=== PATIENT | male | born 1940 | race Caucasian/White ===

== ENCOUNTER 2017-04-05 21:37 | Observation (INO) ==
--- NOTE | 2017-04-05 22:40 | PROVIDER DOCUMENTATION ---
This chart was entered by Srinivasa Araya Scribe, acting as scribe for Romeo Fontanez MD. HPI-Syncope/Dizziness - General Chief Complaint: Dizziness Stated Complaint: dizziness/fall Time Seen by Provider: 04/05/17 22:02 Source: patient, family Allergies/Adverse Reactions: Patient Allergies Allergy/AdvReac Type Severity Reaction Status Date / Time adhesive Allergy Severe Blisters Verified 04/02/17 11:08 codeine Allergy Severe NAUSEA/VOMI Verified 04/02/17 11:08 TING nifedipine [From Procardia] Allergy Severe ITCHING Verified 04/02/17 11:08 latex Allergy Unknown Verified 04/05/17 21:49 clopidogrel bisulfate * AdvReac Severe ITCHING Verified 04/02/17 11:08 [From Plavix] Home Medications: Home Medication List Medication Instructions Recorded Confirmed Last Taken Type Alprazolam [Xanax] 0.5 mg PO BID 04/05/17 04/05/17 04/05/17 History Apixaban [Eliquis] 2.5 mg PO BID 04/05/17 04/05/17 04/05/17 History Atorvastatin Calcium [Lipitor] 20 mg PO QHS 04/05/17 04/05/17 04/04/17 History Duloxetine [Cymbalta] 90 mg PO DAILY 04/05/17 04/05/17 04/05/17 History Folic Acid/Multivit-Min/Lutein 1 tab PO DAILY 04/05/17 04/05/17 04/05/17 History [Centrum Silver Chewable Tablet] Gabapentin [Gabapentin] 600 mg PO DAILY 04/05/17 04/05/17 04/05/17 History Memantine HCl [Namenda Xr] 28 mg PO DAILY 04/05/17 04/05/17 04/05/17 History Montelukast [Singulair] 10 mg PO DAILY 04/05/17 04/05/17 04/05/17 History Oxycodone HCl/Acetaminophen 1 tab PO Q6H PRN 04/05/17 04/05/17 04/05/17 History [Oxycodone-Acetaminophen 5-325] Tamsulosin HCl [Tamsulosin HCl] 0.4 mg PO DAILY 04/05/17 04/05/17 04/05/17 History Ticagrelor [Brilinta] 90 mg PO BID 04/05/17 04/05/17 04/05/17 History Ubidecarenone [Co Q-10] 100 mg PO DAILY 04/05/17 04/05/17 04/05/17 History - History of Present Illness-Syncope/Dizzy Nature of Presenting Problem: Pt is a 76 yowm who presents to ER via EMS after having a syncopal episode at 2100 tonight. reports that pt has been talking out of his head all week, and has had frequent falls lately. Pt was seen at [facility] yesterday for same and pt was told that he was hypotensive and constipated, put on laxative, and sent home. This evening, pt was getiing up from his recliner to answer his door , but passed out when he stood up. also reports that pt has been sleeping intermittently all day today. Onset/Duration: reports: 1-3 hours ago Timing: reports: improving Position/Activity at time of episode: reports: standing Context: reports: collapsed Loss of Consciousness: no loss of consciousness (Pt denied loc, but reports pt has been confused all week) Location of injury. (If syncope resulted in an injury.): reports: head (No loc, per pt) Current Symptoms: denies: sweaty, chest pain, breathing difficulty, short of breath, nausea, vomiting, weakness, dizzy, weak pulse, headache, blurred vision , lightheaded Similar symptoms previously: reports: workup for same problem Recently Seen Here or By Another Healthcare Provider: No Review of Systems - Adult - REVIEW OF SYSTEMS - ADULT Constitutional: denies: chills, fever, fatique, night sweats, weight gain, weight loss Eyes: reports: no symptoms reported Ears, Nose, Mouth & Throat: reports: no symptoms reported Cardiovascular: reports: syncope. denies: chest pain, edema, heart murmur, irregular heart rate, orthopnea, palpitations, poor circulation, PND Respiratory: denies: chronic cough, cough, dyspnea on exertion, excessive sputum production, hemoptysis, pleurisy, shortness of breath, wheezing Gastrointestinal: reports: no symptoms reported Genitourinary: reports: no symptoms reported Musculoskeletal: reports: no symptoms reported Integumentary: reports: no symptoms reported Neurological: reports: syncope, other ("talking out of head"). denies: ataxia, dizziness/vertigo, headache/migraines, loss of balance, numbness, paresthesia, seizure, slurred speech, tremors Psychiatric: reports: no symptoms reported Endocrine: reports: no symptoms reported Hematologic/Lymphatic: reports: no symptoms reported Allergic/Immunologic: reports: no symptoms reported All Other Systems: Reviewed and Negative Past History - Adult - PAST MEDICAL HISTORY-ADULT Review of Records: reports: Nursing Assessment Review, Medications Reviewed Cardiovascular: reports: A-Fib, CAD, hyperlipidemia, other (hypotension) Neurological: reports: CVA (4 yrs ago w/ right sided weakness), TIA Other Conditions: reports: other cancer - PRIOR SURGERIES/PROCEDURES Surgical/Procedure History: reports: appendectomy, CABG (x 2), cholecystectomy, cardiac stent (X20), hernia repair - IMMUNIZATION STATUS Childhood Immunizations: See Nurse Assessment Flu Vaccine: See Nurse Assessment - FAMILY HISTORY Family History: reviewed, not pertinent Physical Exam-General - PHYSICAL EXAM-ADULT Initial Vital Signs Reviewed: Yes - CONSTITUTIONAL General Appearance: appears well, alert, no apparent distress - EYES Eyes: PERRL/EOMI, pink conjunctivae - HEAD, EARS, NOSE, MOUTH & THROAT HENMT: moist mucous membranes, normal ENT inspection, TMs normal, pharynx normal , other (abrasion to inferior orbital and nose). negative: normocephalic/ atraumatic, pharyngeal erythema, tonsillar exudate, TM abnormal - NECK Neck: non-tender, full range of motion, supple, normal inspection. negative: C- spine tenderness, limited range of motion, lymphadenopathy - RESPIRATORY Respiratory: chest non-tender, lungs clear, normal breath sounds, no pleuratic chest pain, no respiratory distress, no accessory muscle use. negative: respiratory distress, decreased breath sounds, accessory muscle use, wheezing - CARDIOVASCULAR Cardiovascular: normal peripheral pulses, regular rate, rhythm. negative: bradycardia, tachycardia, irregularly irregular - GASTROINTESTINAL (ABDOMEN) Abdominal Exam: normal bowel sounds, non tender, soft, no organomegaly, no pulsatile mass. negative: guarding, rebound, tenderness - LYMPHATIC Lymphatic: no adenopathy - MUSCULOSKELETAL Back Exam: normal inspection, no CVA tenderness, no vertebral tenderness. negative: CVA tenderness, decreased range of motion, vertebral tenderness Extremity: normal range of motion, non-tender, normal gait, normal inspection, no pedal edema, no calf tenderness, normal capillary refill. negative: deformity, erythema, inflammation, swelling, tenderness - SKIN Integumentary: normal color, normal turgor, warm/dry, abrasion(s) (left, inferior periorbital; nose). 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 negative: facial droop, focal weakness, motor weakness, sensory deficit - PSYCHIATRIC Psych/Mental Status: normal mood/affect, normal thought content, normal thought process. negative: oriented x 3 (Oriented to person, place, president; Pt though year is 2015) Progress - PLAN OF CARE/RESULTS Progress/Plan/Lab Results: Vital Signs - 8 hr 04/05/17 21:45 04/05/17 23:22 04/05/17 23:34 Temperature 98.2 F Pulse Rate 72 69 Pulse Rate [Sitting] 74 Pulse Rate [Standing] 82 Pulse Rate [Supine] 82 Respiratory Rate 19 10 L Blood Pressure 170/69 170/69 Blood Pressure [Sitting] 93/58 Blood Pressure [Standing] 107/57 Blood Pressure [Supine] 132/66 O2 Sat by Pulse Oximetry 99 95 Laboratory Results - last 24 hr 04/05/17 23:58 WBC 9.33 RBC 3.80 L Hgb 11.6 L Hct 36.0 L MCV 94.7 MCH 30.5 MCHC 32.2 L RDW Std Deviation 14.0 Plt Count 223 MPV 10.5 H Immature Gran % (Auto) 0.0 Neut % (Auto) 79.5 H Lymph % (Auto) 9.4 L [place] % (Auto) 6.4 Eos % (Auto) 4.4 Baso % (Auto) 0.3 Immature Gran # (Auto) 0.00 Neut # (Auto) 7.41 H Lymph # (Auto) 0.88 L [place] # (Auto) 0.60 H Eos # (Auto) 0.41 Baso # (Auto) 0.03 Orders Category Date Time Status Cardiac Monitoring DIRECTED Care 04/05/17 22:02 Active Orthostatic Vital Signs NOW Care 04/05/17 22:02 Active Oxygen Therapy- ED Nursing DIRECTED Care 04/05/17 22:02 Active HEAD/C-SPINE W/O CONTRAST [CT] Stat Exams 04/05/17 21:57 Taken CBC WITH ELECTRONIC DIFF [HEME] Stat Lab 04/06/17 00:00 Completed CK PROFILE [SP CHEM] Stat Lab 04/06/17 00:00 Received COMPREHENSIVE METABOLIC PANEL [CHEM] Stat Lab 04/06/17 00:00 Received MAGNESIUM [CHEM] Stat Lab 04/06/17 00:00 Received PRO B-NATRIURETIC PEPTIDE Stat Lab 04/06/17 00:00 Received TROPONIN T Stat Lab 04/06/17 00:00 Received EKG [EKG] Stat Ther 04/05/17 22:02 Ordered Result Diagrams: 04/05/17 23:58 - EKG 1 Time of EKG reading by physician:: 21:51 EKG Read and Signed by:: Romeo Fontanez EKG Interpretation (*Must complete 3 of following elements*): Abnormal (ST & T wave abnormality, consider inferolateral ischemia; Prolonged QT) Rate: 69 Rhythm: Sinus rhythm with 1st degree AV block with occasional PVC - CT/MRI 1 CT Study: Cervical Spine (No acute fxs are seen - Dr. Crandall (Radiologist)), Head (No acute hemorrhage or definite acute infarct - Dr. Crandall (Radiologist)) Impression: See EMR Report CT Results: See report - CONSULTS/PCP/HOSPITALIST Notification #1 *Consult/PCP/Hospitalist*: Dr. Doll (Hospitalist) Time Discussed: 00:22 Consult Disposition: Admit Departure - Departure Time of Disposition Decision: 00:30 DIAGNOSIS: Syncope Qualifiers: Syncope type: unspecified Qualified Code(s): R55 - Syncope and collapse CAD (coronary artery disease) Qualifiers: Coronary Disease-Associated Artery/Lesion type: unspecified vessel or lesion type [place] vs. transplanted heart: unspecified whether [place] or transplanted heart Associated angina: without angina Qualified Code(s): I25.10 - Atherosclerotic heart disease of [place] coronary artery without angina pectoris Disposition: ADMITTED INPATIENT 09 Certified Medical Emergency: Emergent Condition: Stable Referrals and Follow-Ups: Rashad Hilario MD [Primary Care Provider] - - Critical Care Note This patient required my direct & personal management of CC.: No This chart was documented by the indicated scribe, (Srinivasa Araya Scribe) and accurately reflects the services I performed and decisions made by me, Romeo Fontanez MD, as attested by the provider's signature.
[2017-04-06 00:19] LABS: MANUAL DIFF NEEDED? NO
[2017-04-06 00:23] LABS: BASO% 0.3 % (0.0-0.8); EOS# 0.41 X1000 (0.0-0.7); EOS% 4.4 % (0.0-10.0); HEMOGLOBIN 11.6 g/dL (14.0-18.0); LYMPH# 0.88 X1000 (1.2-3.4); LYMPH% 9.4 % (20.5-51.1); MCH 30.5 PG (27-31); MCHC 32.2 g/dL (33-37); MCV 94.7 FL (81-99); MONO% 6.4 % (1.7-9.3); MPV 10.5 FL (7.4-10.4); NEUT% 79.5 % (42.2-75.2); PLT 223 X1000 (130-400)
[2017-04-06 00:39] LABS: ALBUMIN 4.1 g/dL (3.5-5.0); CALCIUM 9.2 mg/dL (8.8-10.2); MAGNESIUM 2.4 mg/dL (1.5-2.7); POTASSIUM 5.4 mmol/L (3.5-5.1); TOTAL BILIRUBIN 0.31 mg/dL (0.20-1.00); TOTAL PROTEIN 9.3 g/dL (6.3-8.3)
[2017-04-06] MEDS ORDERED: ZOFRAN IV PRN (03:14)
--- NOTE | 2017-04-06 03:38 | HISTORY AND PHYSICAL ---
PRIMARY CARE PHYSICIAN: Dr. Hilario. CHIEF COMPLAINT: Fall. HISTORY OF PRESENTING ILLNESS: This is a 76-year-old male with a history of complicated medical problems including coronary artery disease, hyperlipidemia, dementia, CVA, multiple coronary stents and bypass. Had presented to emergency department with a 1-day history of having a fall. He states that he was he was going to answer the doorbell when all of a sudden, he became weak and passed out. He was brought to the emergency department. He was orthostatic and due to his presenting symptoms, it was thought that we would place him for observation for further evaluation and management. At the time of my examination, he had denied any headaches, fevers, chills, chest pain, shortness of breath, hemoptysis, or weight changes. The patient states that he has been going to a soldering inspector in [place]. They recently had taken him off his blood pressure medicines due to hypotension. PAST MEDICAL HISTORY: Includes coronary artery disease, hyperlipidemia, BPH, dementia, GERD, CVA. PAST SURGICAL HISTORY: Coronary bypass x2, coronary stents, right carotid endarterectomy, cholecystectomy right rotator cuff surgery, bilateral knee replacement, right carpal tunnel surgery. ALLERGIES: Codeine, Plavix, latex. CURRENT MEDICATIONS: Listed in the MAR. SOCIAL HISTORY: He denies any history of smoking, alcohol, or illicit drug use. FAMILY HISTORY: Positive for coronary disease in father. REVIEW OF SYSTEMS: Twelve point review of systems is as listed in the HPI. Other systems negative. PHYSICAL EXAMINATION: GENERAL: Cooperative, friendly male. He is resting comfortably now. VITAL SIGNS: Temperature 98.2 degrees, pulse 72, respirations 18, blood pressure 170/69, he is saturating 99% on room air. HEENT: Atraumatic, normocephalic. Extraocular movements intact. PERRLA. NECK: No masses. CHEST: Clear to auscultation. CARDIOVASCULAR: Regular rate and rhythm. ABDOMEN: Soft. Positive bowel sounds. EXTREMITIES: Trace edema. NEUROLOGIC: He is awake, alert, oriented x2. : No bladder distention. SKIN: Warm. LABORATORIES AND STUDIES: Sodium 137, potassium 5.4, chloride 100, CO2 is 23, BUN is 34, creatinine is 2.4, glucose is 128. WBCs 9.33, hemoglobin 11.6, hematocrit 36, platelets are 233,000. Troponin is 0.01. ASSESSMENT: This is a 76-year-old male with a history of multiple medical problems including coronary artery disease, hyperlipidemia, benign prostatic hypertrophy, and cerebrovascular accident who had multiple stents coronary stents and who had presented to the emergency department after he had syncopal episodes. The patient will need hospitalization for cardiac evaluation. 1. Syncope. 2. Extensive coronary disease. 3. History of cerebrovascular accident. 4. Hyperlipidemia. PLAN: 1. We will admit the patient to the medical floor with telemetry. 2. Continue with orthostatic blood pressure and pulse. 3. We will consult cardiology for his syncope. 4. continue neuro checks. 5. We will restart his home medications. 6. We will put patient on DVT prophylaxis with SCDs. 7. We will continue to follow and reassess. cc: Yunior Doll MD MTDD
--- NOTE | 2017-04-06 08:24 | Diag Imaging Result Doc PS360 ---
EXAM: HEAD/C-SPINE W/O CONTRAST HISTORY: fall TECHNIQUE: COMPARISON: Head as compared to 11/30/2016 FINDINGS: Head: No parenchymal hemorrhage. No epidural or subdural hematoma. No subarachnoid hemorrhage. No skull fracture. There are prominent chronic microvascular ischemic changes. No mass identified on this noncontrasted exam. Small scattered old lacunar views with a small old left occipital infarct. No sinus opacification. Cervical spine: There is good alignment of the cervical spine. No precervical soft tissue swelling. No subluxation. There are small degenerative bone spurs. No fracture. IMPRESSION: 1.Head: No hemorrhage. No injury. There are chronic ischemic changes and small infarcts. 2.Cervical spine: No acute fracture 3.A preliminary report was given at 10:55 PM Electronically signed by Curtis Mao 04/06/2017 8:22 AM
[2017-04-06] MEDS ORDERED: FLOMAX PO SCH (09:00)
[2017-04-06] MEDS ORDERED: NEURONTIN PO SCH (09:00)
[2017-04-06] MEDS: NAMENDA XR PO SCH (09:18)
[2017-04-06] MEDS: CYMBALTA PO SCH (09:18)
[2017-04-06] MEDS: BRILINTA PO SCH ×2 (09:18→20:13)
[2017-04-06] MEDS: SINGULAIR PO SCH (09:18)
[2017-04-06] MEDS: CENTRUM SILVER PO SCH (09:18)
[2017-04-06] MEDS: COENZYME Q10 PO SCH (09:18)
[2017-04-06] MEDS: ELIQUIS PO SCH ×2 (09:18→20:13)
[2017-04-06] MEDS: XANAX PO SCH ×2 (12:58→20:13)
[2017-04-06] MEDS: NS 1,000 ML IV SCH (14:56)
--- NOTE | 2017-04-06 15:30 | PROGRESS NOTE ---
DATE: 04/06/2017 SUBJECTIVE: Today Mr. Mendoza refers to be doing fine. Mr. Mendoza was admitted yesterday because of multiple episodes of falls for the past couple of days which according to the is just getting too much. He has also been experiencing altered mentation which according to the is not normal for him. 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 For the past 3 days he has just been sitting up in the chair, having difficulty to walk around. He says he feels dizzy, especially when moves his head and he does not really feel when he is walking around. OBJECTIVE: Vital signs: Blood pressure is 139/62, pulse of 79, respirations 20 , temperature 98.1 degrees. General: Mr. Mendoza is a 76-year-old, male. He is in bed. Did not seems to be in any distress. HEENT: Mucosa is pink and moist. Anicteric. Acyanotic. Neck: Supple. Chest: Clear. Cardiovascular: Regular rate and rhythm. There is a 2/6 aortic stenosis murmur radiating to the neck. There is an a sternotomy scar consistent with previous surgery. Abdomen: Soft, nontender. Extremities: No pedal edema. LUNCH COUNTER MANAGER: Patient is alert, oriented, has episode of memory gaps. There is not any cerebellar dysfunction. However, patient has very wide-based short steps gait. Has to be the looking on the floor to kind of measure his next step. His Romberg is positive. Vibration sense is remarkably reduced from the tips of the toes all the way up to the knees. Reflexes are normal. IMAGING: A CT scan of the head and cervical spine which was done showed no hemorrhage, no injury. There are chronic ischemic changes and small infarcts. LABORATORY DATA: WBC is 9.33, hemoglobin is 11.6, platelet count of 223,000. MCV is 94.7. Chemistry is reviewed. Sodium is 137, potassium is 5.4, chloride is 100, bicarb is 23. The BUN is 34, creatinine is 2.4. Review of the EKG on admission showed a normal sinus rhythm with frequent PVCs. ASSESSMENT: Mr. Mendoza is a 76-year-old, male who presented with a history of multiple falls with some sensation deficit in the lower extremities. 1. Multiple falls. Etiology is apparently not clear. The patient does have significant sensation impairment to the lower extremity on vibration. Romberg is positive. I am suspecting possible sensory ataxia. We will, however, want to do an MRI to rule out any pontocerebellar angle disease or inner ear abnormality. We will also get Neurology to examine the patient since he might probably end up getting an EMG with nerve conduction studies. For now we will put the patient on meclizine for symptomatic relief, and will also cut down on his gabapentin because of his renal function. We are also going to check on his vitamin D to see if it is low. We will replace it since sometimes that can also impact immensely on the musculoskeletal health. 2. Normocytic anemia. We will do the workup especially looking at the B12 and folate since they can as well give this type of sensory symptoms. We will also do a TSH. 3. Chronic kidney disease, stage 4 noted. 4. History of hypertension. Patient is actually on medication. When he came in , he did numbers that where almost consistent with orthostatic hypotension. So I think it is reasonable to withhold his blood pressure medications for now and hydrate him, give him a gentle hydration and recheck his orthostatic vitals and go from there. 5. Hx of CAD with multiple stents. Noted. 6. Hx Tachyarrhythmias s/p cardiac ablation. Patient could as well be having cardiac syncope. Cardiology to evaluate PLAN: In general, Mr. Mendoza seems to be stable. He has this wide-based gait with some imbalance. Romberg is positive. We will get Neurology to see the patient. We will withhold on his blood pressure medications for now. I will reduce his gabapentin because of his renal issues. We are going to withhold the Flomax since that can immensely cause orthostatic hypotension. We will follow up with further recommendations from Cardiology and Neurology that have been consulted. Patient is also pending an MRI. Follow up with lab work mentioned above. cc: Fox Ballard MD MTDD
[2017-04-06] MEDS: ANTIVERT PO SCH (17:31)
--- NOTE | 2017-04-06 18:53 | CONSULTATION ---
DATE OF CONSULTATION: 04/06/2017 IMPRESSION: 1. Recurrent syncope without warning. Although he has had some tendency for orthostatic hypotension and lower blood pressure, his syncope occurred without warning and given his history of prior paroxysmal atrial fibrillation managed with pulmonary vein isolation, one must consider the possibility of sinus node dysfunction or conduction system disease. He has worn event recorders in the past but has never become symptomatic while wearing one. 2. Atherosclerotic coronary disease with 2 previous coronary bypass procedures and multiple coronary angioplasty/stent procedures last being performed about a month ago at [facility] in [place], [place]. 3. Atherosclerotic carotid disease with history of right carotid endarterectomy. 4. Hyperlipidemia. 5. Chronic kidney disease. 6. History of previous cerebrovascular accident. RECOMMENDATIONS: 1. Monitor patient on telemetry overnight. 2. If no arrhythmias and patient stable, it is reasonable to discharge him with 30-day event recorder. Patient should have prompt followup with his EP/arrhythmia comic writer Dr. Henry at [facility] in [place], [place] as soon as possible. 3. Patient warned not to drive and to take precautions to not place himself in precarious situation should he have a syncopal spell. HISTORY: This 76-year-old white male with past history of atherosclerotic coronary disease as outlined above, hyperlipidemia, mild dementia, previous cerebrovascular accident, paroxysmal atrial fibrillation and previous right carotid endarterectomy was admitted after another episode of syncope. He relates he had just gotten up and was walking across the room and passed out without any warning. There were no palpitations, no lightheadedness. He hit the left side of his face and suffered laceration just lateral to his left orbit. He also suffered a left hand injury. He relates that he has had probably 12 episode of syncope and all have occurred without any warning symptoms. He recently had reemergence of angina symptoms and had evaluation at [facility] by Dr. Mehran Norton. He indicates that he had angio/stenting and his angina symptoms abated. He has had some tendency for low blood pressure and his antianginal medications have been curtailed because of this. He has history of paroxysmal atrial fibrillation in the past and had pulmonary vein isolation procedure at [facility] by Dr. Henry. He is due for followup with Dr. Henry in the near future. He has not had any orthopnea or recurrence of angina. He has had no palpitations. PAST MEDICAL HISTORY: 1. Atherosclerotic coronary disease as outlined above. 2. Hyperlipidemia. 3. Mild dementia. 4. Previous cerebrovascular accident. 5. Previous right carotid endarterectomy. PAST SURGICAL HISTORY: Includes right carotid endarterectomy, coronary bypass surgery on 1 occasion, repeat coronary bypass grafting, cholecystectomy, right rotator cuff surgery, bilateral knee replacement, right carpal tunnel procedure. ALLERGIES: He is allergic or intolerant to codeine, Plavix and latex. CURRENT MEDICATIONS: As listed. It is noteworthy that he is on tamsulosin which he takes at night for prostate hypertrophy. He is also taking Eliquis and Brilinta the latter being added after his recent angioplasty/stent procedure. He is effectively on no antianginal. SOCIAL HISTORY: He does not smoke or drink. FAMILY HISTORY: Positive for coronary disease in his father with older age of clinical onset. REVIEW OF SYSTEMS: Pulmonary: Negative. Gastrointestinal: Negative. Constitutional: Negative. Remainder review of systems negative/noncontributory with 14 total systems reviewed. PHYSICAL EXAMINATION: General: This is a overweight elderly male in no distress on room air. Vital Signs: Blood pressure 139/62, heart rate 79 and regular with ECG monitor showing sinus rhythm, oxygen saturation 96% on room air. HEENT Exam: Remarkable for laceration lateral to left orbit with dressing in place. Mucous membranes moist. Neck: Supple without JV distention. Carotid bruits cannot be appreciated. Chest: Clear to auscultation. Cardiac Exam: Reveals a regular rate and rhythm without appreciable murmur or gallop. Abdomen: Soft, nontender. Bowel sounds are normal. Extremities: Without edema. Neurologic Exam: Reveals him to be alert, fully oriented. Speech is fluent. Moves all 4 extremities equally well. Skin: Warm and dry. Psychiatric: Reveals his mood to be appropriate. DATA: ECG demonstrates sinus rhythm with 1st degree AV block and occasional premature ventricular complex. Inferolateral ST and T-wave abnormality demonstrated, consider inferolateral ischemia. cc: Brendan Stevens MD
[2017-04-06] MEDS: LIPITOR PO SCH (20:13)
[2017-04-07 05:30] LABS: MANUAL DIFF NEEDED? NO
[2017-04-07 05:36] LABS: BASO% 0.4 % (0.0-0.8); EOS# 0.55 X1000 (0.0-0.7); EOS% 7.4 % (0.0-10.0); HEMATOCRIT 37.3 % (42.0-52.0); HEMOGLOBIN 11.9 g/dL (14.0-18.0); IMM GRAN# 0.02 X1000 (0.0-0.04); IMM GRAN% 0.3 % (0.0-0.5); LYMPH# 1.54 X1000 (1.2-3.4); LYMPH% 20.6 % (20.5-51.1); MCH 30.2 PG (27-31); MCHC 31.9 g/dL (33-37); MCV 94.7 FL (81-99); MONO# 0.79 X1000 (0.11-0.59); MONO% 10.6 % (1.7-9.3); MPV 10.3 FL (7.4-10.4); NEUT% 60.7 % (42.2-75.2); PLT 208 X1000 (130-400); RBC 3.94 XMIL (4.7-6.1)
[2017-04-07 05:50] LABS: CALCIUM 9.3 mg/dL (8.8-10.2); POTASSIUM 4.9 mmol/L (3.5-5.1)
[2017-04-07 05:51] LABS: IRON SATURATION 21 %; TIBC 228 ug/dL; TOTAL IRON 48 ug/dL (53-167); UNBOUND IRON 180 ug/dL (112-346)
[2017-04-07] MEDS: NS 1,000 ML IV SCH (06:12)
--- NOTE | 2017-04-07 07:48 | EKG Report ---
Test Performed on : 04/05/2017 9:51:14 PM Test Reason : Chest Pain Blood Pressure : / mmHG Vent. Rate : 069 BPM Atrial Rate : 069 BPM P-R Int : 210 ms QRS Dur : 110 ms QT Int : 438 ms P-R-T Axes : 064 029 169 degrees QTc Int : 469 ms Sinus rhythm. with 1st degree AV block. with occasional premature ventricular complexes. ST \T\ T wave abnormality, consider inferolateral ischemia Prolonged QT Abnormal ECG When compared with ECG of 02-APR-2017 11:15, premature ventricular complexes. are now present Unconfirmed Result
[2017-04-07] MEDS: ELIQUIS PO SCH ×2 (09:29→20:20)
[2017-04-07] MEDS: NEURONTIN PO SCH (09:29)
[2017-04-07] MEDS: NAMENDA XR PO SCH (09:29)
[2017-04-07] MEDS: XANAX PO SCH ×2 (09:29→20:20)
[2017-04-07] MEDS: CYMBALTA PO SCH (09:30)
[2017-04-07] MEDS: COENZYME Q10 PO SCH (09:30)
[2017-04-07] MEDS: ANTIVERT PO SCH ×3 (09:30→17:38)
[2017-04-07] MEDS: CENTRUM SILVER PO SCH (09:30)
[2017-04-07] MEDS: BRILINTA PO SCH ×2 (09:30→20:20)
[2017-04-07] MEDS: SINGULAIR PO SCH (09:30)
--- NOTE | 2017-04-07 10:36 | ECHO REPORT ---
ORDER DATE: 04/06/2017 MEASUREMENTS: Left ventricular end-diastolic diameter 5.0, septal thickness 1.6, left atrium 4.2, aortic root 4.1. SUMMARY: 1. Technically difficult study due to limited acoustic window quality. 2. Fibrocalcific changes of aortic valve demonstrated, with reduced aortic valve leaflet mobility. Peak instantaneous gradient across the aortic valve is 28 mmHg, with a mean gradient of 18 mmHg. Doppler of LV outflow tract was suboptimal, and aortic valve area cannot be calculated by Doppler. Moderate aortic stenosis is suggested. There is mild aortic regurgitation. Moderate mitral annular calcification is demonstrated, with mild mitral regurgitation. Tricuspid and pulmonic valves are without structural abnormality, with mild tricuspid regurgitation. The estimated systolic PA pressure by Doppler is 30 to 35 mmHg. The aortic root is mildly enlarged. 3. Normal left ventricular chamber size with [id number] concentric left ventricular hypertrophy is demonstrated. Estimated left ventricular ejection fraction is approximately 45%. Regional wall motion analysis is challenging given limitations of study. No obvious wall motion abnormality can be appreciated. Doppler suggests grade 1 left ventricular diastolic dysfunction. Left atrium is mildly enlarged. Right atrium and right ventricle are normal in size with normal right ventricular systolic function. 4. No pericardial effusion. 5. The appearance of inferior vena cava suggests normal central venous pressure. CONCLUSIONS: 1. Technically difficult study. 2. Moderate calcific aortic stenosis. 3. Moderate mitral annular calcification with mild mitral regurgitation. 4. Mild tricuspid regurgitation. 5. [id number] concentric left ventricular hypertrophy with estimated left ventricular ejection fraction of approximately 45%. 6. Grade 1 left ventricular diastolic dysfunction. 7. Mild left atrial enlargement. 8. Mild aortic root enlargement. cc: MD Yunior Gar MD
--- NOTE | 2017-04-07 14:11 | PROGRESS NOTE ---
DATE: 04/07/2017 SUBJECTIVE: The patient is resting comfortably in bed. He has no complaints at this time. No acute events noted overnight. OBJECTIVE: Vital Signs: Temperature 97.9 degrees, blood pressure 147/72, heart rate 69, respirations 18, O2 saturation is 98% on room air. General: This is an elderly male, lying in bed, in no acute distress. HEENT: Head is normocephalic. Atraumatic. Heart: S1, S2. Normal. Regular rate and rhythm. Lungs: Clear to auscultation bilaterally. No wheezes, no rales. No rhonchi. Abdomen: Positive bowel sounds. Soft, nontender, nondistended. Extremities: No edema. No cyanosis. Neurologic: The patient is alert and oriented x3. LABORATORY DATA: White blood cell count 7.4, hemoglobin 11, hematocrit 37, platelets 208,000. Sodium 139, potassium 4.9, chloride 103, CO2 23, BUN 31, creatinine 2.1. Glucose 111. ASSESSMENT AND PLAN: 1. Syncope. We will check orthostatics on the patient. An echo was done and the report was reviewed. Cardiology, as well as Neurology, have been consulted. 2. Acute kidney injury on chronic kidney disease. Improved. Continue to monitor closely and avoid nephrotoxic agents. 3. Coronary artery disease with multiple stents. Aware. Continue on Brilinta. 4. History of tachyarrhythmia status post cardiac ablation. Aware. cc: Michelle Bernard MD
--- NOTE | 2017-04-07 14:23 | PROGRESS NOTE ---
DATE: 04/07/2017 SUBJECTIVE: Mr. Mendoza continues without chest discomfort or dyspnea. OBJECTIVE: Vital Signs: Blood pressure 139/62, heart rate 79 and regular. There is no significant jugular distention. Chest: Slear to auscultation. Cardiovascular: Regular rate and rhythm with a grade 2/6 systolic murmur at the right upper sternal border. No gallop could be appreciated. ECHOCARDIOGRAPHY: Indicates moderate calcific aortic stenosis, mild mitral regurgitation. Mild- to-moderate concentric left hypertrophy with estimated left ejection fraction 45%. IMPRESSION: 1. Recurrent syncope. He has demonstrated some tendency for low blood pressure/orthostatic hypotension. However the pattern of syncope without warning on multiple occasions raises concern regarding possible sinus pause of bradycardia as cause. 2. Atherosclerotic coronary disease with history of previous coronary bypass on 2 occasions and multiple coronary stent procedures. 3. Hypertension. 4. Chronic kidney disease. 5. Moderate aortic stenosis. 6. History of atrial fibrillation and previous ablation. RECOMMENDATIONS: At this point, I would advocate patient having for prompt followup with his electrophysiology/arrhythmia campaign marketing manager Dr. Henry at [facility] in [place], [place]. Discussed with the family and the patient's is going to try and make an appointment as soon as possible. cc: Brendan Stevens MD
[2017-04-07] MEDS: LIPITOR PO SCH (20:20)
[2017-04-07] MEDS: COREG PO SCH (21:38)
[2017-04-08 06:30] LABS: CALCIUM 8.9 mg/dL (8.8-10.2); POTASSIUM 4.5 mmol/L (3.5-5.1)
--- NOTE | 2017-04-08 08:30 | PROGRESS NOTE ---
DATE: 04/08/2017 SUBJECTIVE: Patient continues asymptomatic from a cardiovascular standpoint. He denies dyspnea or chest pain on room air. OBJECTIVE: Vital Signs: Blood pressure supine 128/64, with heart rate 84, blood pressure standing 118/60, with a heart rate of 82. ECG monitor shows sinus rhythm. There is an episode of nonsustained VT. Neck: There is no significant jugular venous distention. Chest: Clear to auscultation. Cardiac Examination: Reveals a regular rate and rhythm without appreciable murmur or gallop. Extremities: There is no evidence of peripheral edema. IMPRESSION: 1. Recurrent syncope. Although he has shown some tendency for orthostatic hypotension, the recurrent nature of his syncope and abrupt nature suggests the potential for bradyarrhythmias and underlying conduction system disease. He has also demonstrated nonsustained ventricular tachycardia. 2. Atherosclerotic coronary disease with history of 2 previous coronary bypass procedures and multiple coronary stent procedures. He continues without angina. 3. Hypertension. 4. Chronic kidney disease. 5. Moderate aortic stenosis. 6. History of atrial fibrillation and previous ablation. RECOMMENDATIONS: At this point, I advocate having the patient arrange prompt followup with his electrophysiology/arrhythmia certified master safecracker, Dr. Henry at [facility] in [place], [place]. This has been discussed with the family and the is going to try and make arrangements as soon as possible. cc: Brendan Stevens MD
[2017-04-08] MEDS: ELIQUIS PO SCH (09:57)
[2017-04-08] MEDS: ANTIVERT PO SCH (09:57)
[2017-04-08] MEDS: COREG PO SCH (09:57)
[2017-04-08] MEDS: XANAX PO SCH (09:57)
[2017-04-08] MEDS: NEURONTIN PO SCH (09:57)
[2017-04-08] MEDS: COENZYME Q10 PO SCH (09:57)
[2017-04-08] MEDS: CENTRUM SILVER PO SCH (09:57)
[2017-04-08] MEDS: SINGULAIR PO SCH (09:57)
[2017-04-08] MEDS: NAMENDA XR PO SCH (09:57)
[2017-04-08] MEDS: CYMBALTA PO SCH (09:57)
[2017-04-08] MEDS: BRILINTA PO SCH (09:57)
[2017-04-08 11:45] VITALS: BP 124/71
--- NOTE | 2017-04-08 12:36 | Diag Imaging Result Doc PS360 ---
EXAM: MRI BRAIN W W/O CONTRAST INDICATION: unsteady gait COMPARISON: 12/02/2016 FINDINGS: There is no evidence of acute infarct. There are several stable chronic lacunar infarcts involving the periventricular and subcortical white matter. There is a chronic lacunar infarct involving the left cerebellar hemisphere. There is focal encephalomalacia involving the left occipital lobe. There is extensive T2/FLAIR hyperintensity in the periventricular and subcortical white matter suggesting advanced microangiopathy, stable. There is no discrete intracranial mass, mass effect, or intracranial hemorrhage. There is suggestion of a subtle outpouching at the anterior communicating artery near the take off of the A2 segment of the left anterior cerebral artery. This may represent a tiny aneurysm measuring up to 2.8 mm in the greatest dimension. If warranted clinically, a CTA head may be helpful. Otherwise, there is no evidence of abnormal intracranial enhancement. The surrounding soft tissues and bony structures are essentially unremarkable. IMPRESSION: 1.Multiple chronic lacunar infarcts throughout both cerebral hemispheres and in the left cerebellar hemisphere as well as focal encephalomalacia involving the left occipital lobe. These are stable. 2.Suggestion of extensive white matter microangiopathy, stable. 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 4.No definite acute intracranial pathology. Electronically signed by Harris Hussein 04/08/2017 12:33 PM
--- NOTE | 2017-04-20 19:20 | DISCHARGE SUMMARY ---
ADMISSION DATE: 04/07/2017 DISCHARGE DATE: 04/08/2017 FINAL DISCHARGE DIAGNOSES: 1. Recurrent cardiogenic syncope 2. Acute kidney injury on chronic kidney disease. 3. Coronary artery disease with multiple stents. 4. History of tachyarrhythmia status post cardiac ablation. CONSULTATIONS REQUESTED DURING THIS HOSPITAL STAY: Cardiology consultation with Brendan Stevens MD . HOSPITAL COURSE: Mr. Mendoza is a 76-year-old male with a history of extensive cardiac disease and recurrent syncope who presented to the ER after having a syncopal episode. The patient is normally followed by Dr. Henry at [facility] in [place], [place]. Cardiology was consulted here and after reviewing the patient's telemetry strips and echocardiogram, it was determined that the patient's recurrent syncope was most likely secondary to a cardiac etiology. It was recommended by the classroom instructor here in [place] that the patient follow up with his classroom instructor in [place], [place]. This was discussed with the patient and his family who agreed with the plan of care. The patient was offered on an ambulance ride to [place]; however, he and his family refused and stated that they wanted to drive to [place] on their own for the appointment. The patient was cleared for discharge on 04/08/2017. DISCHARGE MEDICATIONS: 1. Coreg 3.125 mg p.o. twice a day. 2. Cymbalta 90 mg p.o. daily. 3. Gabapentin 600 mg p.o. daily. 4. Singulair 10 mg p.o. daily. 5. Namenda 28 mg p.o. daily. 6. Lipitor 20 mg p.o. at bedtime. 7. Eliquis 2.5 mg p.o. twice a day. 8. Xanax 0.5 mg p.o. twice a day. 9. Multivitamin 1 tablet oral daily. 10. Brilinta 90 mg p.o. twice a day. 11. Percocet 5/325, 1 tab oral every 6 hours p.r.n. for pain. 12. Flomax 0.4 mg p.o. daily. DISCHARGE DIET: Cardiac diet. ACTIVITY: As tolerated. FOLLOWUP INSTRUCTIONS: The patient is being discharged today to drive straight to [facility] in [place], [place] to be seen by his classroom instructor, Dr. Henry. cc: Michelle Brenard MD MTDD
== END 2017-04-08 11:56 | disposition home or self-care (01) ==
LOC: 4N 21:37 → ED 21:37 → SUATTDRO 04-06 01:19
PROVIDERS: ATTEND Internal Medicine

== ENCOUNTER 2017-05-04 12:38 | Observation (INO) ==
[2017-05-04] MEDS ORDERED: ASPIRIN PO STA (14:14)
--- NOTE | 2017-05-04 14:51 | Diag Imaging Result Doc PS360 ---
HEAD W/O CONTRAST - 05/04/2017 INDICATION: ams TECHNIQUE: A CT dose reduction protocol was used. COMPARISON: 04/05/2017 FINDINGS: Stable moderate to advanced periventricular white matter chronic microvascular disease. Stable old lacunar infarcts. Stable small cortical infarcts at the left frontal and occipital lobes. No intracranial mass or hemorrhage. The skull is intact. The sinuses, mastoids, and middle ears are clear. IMPRESSION: No change from prior. Electronically signed by Victor M Sweet 05/04/2017 2:48 PM
[2017-05-04 14:56] LABS: MANUAL DIFF NEEDED? NO
[2017-05-04 15:02] LABS: BASO% 0.3 % (0.0-0.8); EOS# 0.12 X1000 (0.0-0.7); EOS% 1.8 % (0.0-10.0); HEMATOCRIT 32.3 % (42.0-52.0); HEMOGLOBIN 10.5 g/dL (14.0-18.0); IMM GRAN# 0.02 X1000 (0.0-0.04); IMM GRAN% 0.3 % (0.0-0.5); LYMPH# 1.11 X1000 (1.2-3.4); LYMPH% 16.7 % (20.5-51.1); MCHC 32.5 g/dL (33-37); MCV 95.3 FL (81-99); MONO# 0.63 X1000 (0.11-0.59); MONO% 9.5 % (1.7-9.3); MPV 10.5 FL (7.4-10.4); NEUT% 71.4 % (42.2-75.2); PLT 214 X1000 (130-400); RBC 3.39 XMIL (4.7-6.1)
[2017-05-04 15:09] LABS: INR 1.11; PROTIME 11.7 Seconds (9.2-11.7); PTT 29.1 Seconds (22.0-36.0)
[2017-05-04 15:46] LABS: ALBUMIN 4.2 g/dL (3.5-5.0); CALCIUM 9.3 mg/dL (8.8-10.2); MAGNESIUM 2.2 mg/dL (1.5-2.7); POTASSIUM 4.9 mmol/L (3.5-5.1); TOTAL BILIRUBIN 0.44 mg/dL (0.20-1.00); TOTAL PROTEIN 9.2 g/dL (6.3-8.3)
[2017-05-04] MEDS ORDERED: LASIX IV ONE (16:39)
--- NOTE | 2017-05-04 16:53 | Diag Imaging Result Doc PS360 ---
CHEST-1 VIEW - 05/04/2017 INDICATION: sob TECHNIQUE: COMPARISON: 04/02/2017 FINDINGS: There is a new left subclavian dual chamber pacemaker in good position. There are other, stable surgical changes to the heart. Heart size and pulmonary vascularity is normal. No focal infiltrates, pneumothorax, or pleural effusion. IMPRESSION: No acute disease or complication. Electronically signed by Victor M Sweet 05/04/2017 4:51 PM
--- NOTE | 2017-05-04 17:12 | PROVIDER DOCUMENTATION ---
This chart was entered by Marleni White Scribe, acting as scribe for Rashaun Martin MD. HPI-General Adult - General Chief Complaint: Altered Mental Status Stated Complaint: AMS Time Seen by Provider: 05/04/17 12:58 Source: patient, family Allergies/Adverse Reactions: Patient Allergies Allergy/AdvReac Type Severity Reaction Status Date / Time adhesive Allergy Severe Blisters Verified 04/02/17 11:08 codeine Allergy Severe NAUSEA/VOMI Verified 04/02/17 11:08 TING nifedipine [From Procardia] Allergy Severe ITCHING Verified 04/02/17 11:08 latex Allergy Unknown Verified 04/05/17 21:49 clopidogrel bisulfate * AdvReac Severe ITCHING Verified 04/02/17 11:08 [From Plavix] Home Medications: Home Medication List Medication Instructions Recorded Confirmed Last Taken Type Alprazolam [Xanax] 0.5 mg PO BID 04/05/17 05/04/17 05/03/17 History Apixaban [Eliquis] 2.5 mg PO BID 04/05/17 05/04/17 05/03/17 History Atorvastatin Calcium [Lipitor] 20 mg PO QHS 04/05/17 05/04/17 05/03/17 History Duloxetine [Cymbalta] 90 mg PO DAILY 04/05/17 05/04/17 05/03/17 History Folic Acid/Multivit-Min/Lutein 1 tab PO DAILY 04/05/17 05/04/17 05/03/17 History [Centrum Silver Chewable Tablet] Gabapentin 600 mg PO DAILY 04/05/17 05/04/17 05/03/17 History Memantine HCl [Namenda Xr] 28 mg PO DAILY 04/05/17 05/04/17 05/03/17 History Montelukast [Singulair] 10 mg PO DAILY 04/05/17 05/04/17 05/03/17 History Oxycodone HCl/Acetaminophen 1 tab PO Q6H PRN 04/05/17 05/04/17 05/03/17 History [Oxycodone-Acetaminophen 5-325] Tamsulosin HCl 0.4 mg PO DAILY 04/05/17 05/04/17 05/03/17 History Ticagrelor [Brilinta] 90 mg PO BID 0505/04/17 05/03/17 History Ubidecarenone [Co Q-10] 100 mg PO DAILY 04/05/17 05/04/17 05/03/17 History Carvedilol [Coreg] 3.125 mg PO BID #60 tablet 04/08/17 05/04/17 05/03/17 Rx - History of Present Illness -Gen Adult Nature of Presenting Problems: 76 yo M presents to the ER with complaint of falling x3 times last night, increased confusion, and weakness. Pt had a pacemaker and defibrilator placed x2 weeks ago, was in [facility] for rehab. Family reports pt being more confused and "not being at baseline". States he will go 12 hours of not urinating then have incontinence. States he fell x3 times last night. Onset/Duration: reports: last night Associated Symptoms: reports: dizziness, genitourinary problems, weakness, trouble walking. denies: diarrhea, fatigue, fever/chills, nausea, shortness of breath, vomiting Review of Systems - Adult - REVIEW OF SYSTEMS - ADULT Constitutional: denies: chills, fever Eyes: reports: no symptoms reported Ears, Nose, Mouth & Throat: reports: no symptoms reported Cardiovascular: denies: chest pain, palpitations Respiratory: denies: cough, shortness of breath Gastrointestinal: denies: diarrhea, nausea, vomiting Genitourinary: reports: incontinence, urinary retention Musculoskeletal: denies: joint pain, joint swelling Integumentary: reports: no symptoms reported Neurological: reports: dizziness/vertigo. denies: headache/migraines Psychiatric: reports: no symptoms reported Endocrine: reports: no symptoms reported Hematologic/Lymphatic: reports: no symptoms reported Allergic/Immunologic: reports: no symptoms reported All Other Systems: Reviewed and Negative Past History - Adult - PAST MEDICAL HISTORY-ADULT Review of Records: reports: Nursing Assessment Review, Medications Reviewed Cardiovascular: reports: A-Fib, CAD, hyperlipidemia, other (hypotension) Neurological: reports: CVA (4 yrs ago w/ right sided weakness), TIA Other Conditions: reports: other cancer - PRIOR SURGERIES/PROCEDURES Surgical/Procedure History: reports: appendectomy, CABG (x 2), cholecystectomy, cardiac stent (X20), hernia repair - IMMUNIZATION STATUS Childhood Immunizations: See Nurse Assessment Flu Vaccine: See Nurse Assessment Physical Exam-General - PHYSICAL EXAM-ADULT Initial Vital Signs Reviewed: Yes - CONSTITUTIONAL General Appearance: alert, no apparent distress - EYES Eyes: PERRL/EOMI, pink conjunctivae - HEAD, EARS, NOSE, MOUTH & THROAT HENMT: normocephalic/atraumatic, normal ENT inspection, TMs normal, pharynx normal - NECK Neck: supple, normal inspection - RESPIRATORY Respiratory: no respiratory distress, no accessory muscle use - CARDIOVASCULAR Cardiovascular: normal peripheral pulses, regular rate, rhythm - GASTROINTESTINAL (ABDOMEN) Abdominal Exam: normal bowel sounds, non tender, soft - MUSCULOSKELETAL Back Exam: no CVA tenderness, no vertebral tenderness Extremity: normal gait, normal inspection - SKIN Integumentary: normal color, warm/dry, ecchymosis (R ribs), other (skin tear to L elbow) - NEUROLOGIC Neurologic: grossly normal, no motor/sensory deficits - PSYCHIATRIC Psych/Mental Status: normal mood/affect, normal thought content, normal thought process, oriented x 3 Progress - PLAN OF CARE/RESULTS Progress/Plan/Lab Results: Vital Signs - 8 hr 05/04/17 12:39 Temperature 98.3 F Pulse Rate 69 Respiratory Rate 20 Blood Pressure 136/76 O2 Sat by Pulse Oximetry 99 Result Diagrams: 05/04/17 14:41 05/04/17 14:41 - EKG 1 Time of EKG reading by physician:: 15:04 EKG Read and Signed by:: Rashaun Martin EKG Interpretation (*Must complete 3 of following elements*): Abnormal Rate: 61 Rhythm: sinus rhythm with 1st degree AV block [place]: normal QRS: normal LA Interval: normal ST Wave: non-specific ST changes (ST&T wave abnormality, consider inferolateral ischemia) - CT/MRI 1 CT Study: Head Impression: Normal (no change from prior, per radiologist) Comparison with other Films: no changes Departure - Departure Date of Disposition Decision: 05/04/17 Time of Disposition Decision: 17:11 DIAGNOSIS: Dyspnea, Congestive heart failure, Confusion, UTI symptoms Disposition: ADMITTED INPATIENT 09 Certified Medical Emergency: Emergent Condition: Stable Referrals and Follow-Ups: Rashad Hilario MD [Primary Care Provider] - - Critical Care Note This patient required my direct & personal management of CC.: No Attestation - Physician/ KYLAH Attestation The physician spent face to face time with patient:: Yes Advanced Practice Provider documentation review:: The physician spent face to face time with this patient and agrees with all MLP documentation, treatment, and medical decision making by the MLP. See provider notes for further information. This chart was documented by the indicated scribe, (Marleni White Scribe) and accurately reflects the services I performed and decisions made by Mario campbell Christophe I, MD, as attested by the provider's signature.
[2017-05-04 18:41] LABS: URINE CULTURE NEEDED? NO; URINE MICRO REVIEW NEEDED? NO; URINE SOURCE CATH
[2017-05-04 18:45] LABS: BILIRUBIN URINE NEGATIVE (NEGATIVE); BLOOD URINE NEGATIVE (NEGATIVE); COLOR YELLOW; GLUCOSE URINE NEGATIVE (NEGATIVE); LEUKOCYTES URINE NEGATIVE (NEGATIVE); NITRITE URINE NEGATIVE (NEGATIVE); PROTEIN URINE NEGATIVE (NEGATIVE); TURBIDITY URINE CLEAR (CLEAR); UROBILINOGEN URINE NORMAL (NORMAL)
[2017-05-04 18:46] LABS: UR EPITHELIAL CELLS <10 /HPF (<10); URINE BACTERIA NEGATIVE /HPF; URINE RBC <10 /HPF (<10); URINE WBC <10 /HPF (<10)
[2017-05-04] MEDS ORDERED: NS 1,000 ML IV SCH (18:53)
[2017-05-04] MEDS ORDERED: TYLENOL PO PRN (18:53)
[2017-05-04] MEDS ORDERED: ZOFRAN IV PRN (18:53)
[2017-05-04] MEDS: LIPITOR PO SCH (22:23)
[2017-05-04] MEDS: PERCOCET-5 PO PRN (22:23)
[2017-05-04] MEDS: XANAX PO SCH (22:24)
[2017-05-04] MEDS: BRILINTA PO SCH (22:24)
[2017-05-04] MEDS: ELIQUIS PO SCH (22:24)
[2017-05-04] MEDS: COREG PO SCH (22:24)
[2017-05-05] MEDS: PERCOCET-5 PO PRN ×2 (03:17→21:32)
--- NOTE | 2017-05-05 05:08 | HISTORY AND PHYSICAL ---
CHIEF COMPLAINT: Chest pain. HISTORY OF PRESENT ILLNESS: This is a 76-year-old, white male with a history significant for CAD history. He has had 20 plus stents. He is status post CABG x2. He presents with worsening confusion for the last 48 hours. He has also been aneuric for 12-24 hours. His family states he has been more confused. He has not been having more frequent falls. He injured both elbows. He was recently admitted in March and ended up getting a pacemaker placed by his compilation clerk. I thought it was in [place]. Then he went to rehab for a couple of weeks. He has been out of rehab for about 4 days. The last 2 days, he has been very confused. His family reports this is a big change from baseline from him, although he does carry a diagnosis of dementia and is on Namenda. Again, has not really been able to urinate. Apparently yesterday, he did have an episode in the middle of the night where he tried to urinate and he just was incontinent. Workup in the ER revealed an elevated BNP. It has been elevated before but it was about 1800 and his creatinine is at 2.8. Usually, his creatinine is in the 2 range, was as low as 1.9. There was concern over heart failure but his chest x-ray was clear. Head CT was clear. I am admitting him for altered mental status, urinary retention, acute kidney injury, possible UTI. PAST MEDICAL HISTORY: 1. Again, CAD status post CABG x2 and multiple PCIs including reportedly 20 plus stents. 2. Carotid stenosis. 3. Dyslipidemia. 4. BPH. 5. Dementia. 6. GERD. 7. History of CVA with right-sided weakness. PAST SURGICAL HISTORY: 1. CABG x2, PCI. 2. Right carotid endarterectomy. 3. Cholecystectomy. 4. Right rotator cuff surgery. 5. Bilateral knee replacement. 6. Right carpal tunnel. ALLERGIES: Codeine, Plavix, and latex. SOCIAL HISTORY: No tobacco or ethanol. He is a retired [employer]. FAMILY HISTORY: CAD in father. REVIEW OF SYSTEMS: All systems reviewed, otherwise negative. PHYSICAL EXAMINATION: VITAL SIGNS: Blood pressure was 171/78, heart rate of 76, respiratory rate of 16, temperature 98.3 degrees, 98% on room air. GENERALLY: Well-developed male in no acute distress. HEAD: Normocephalic, atraumatic. EYES: Pupils equal, round, reactive to light. Extraocular movements were intact. EARS/NOSE/THROAT: He had moist mucous membranes. NECK: Supple. CARDIOVASCULAR: Regular rate and rhythm. Soft S1-S2. PULMONARY: Clear anteriorly. GI: Soft, nontender, nondistended. Bowel sounds were positive. PULMONARY: Bilateral breath sounds clear to auscultation. EXTREMITIES: No clubbing or cyanosis. LYMPHATICS: No peripheral edema. NEUROLOGICAL: Examination was nonfocal. No pronator drift. No facial asymmetry. The patient is edentulous. MUSCULOSKELETAL: Was 5/5 in all 4 extremities. LABORATORY DATA: Hemoglobin and hematocrit 10 and 32, which is close to baseline. No white count. BUN and creatinine of 37 and 2.8. His last one was 44 and 2.6 nine days ago. When he was discharged on the , it was 1.9. EKG intermittently paced. Urine has been unobtainable. Coagulations were negative. Head CT was negative. Chest x-ray showed pacer but no acute airspace disease. He was given 80 of Lasix which he has not made any urine since that time. PROBLEM LIST: This is a 76-year-old, white male with coronary artery disease, dementia, diastolic heart failure who presents with altered mentation and urinary retention. 1. Encephalopathy, likely metabolic, multifactorial. I am suspicious of urinary tract infection and urinary retention. We will manage those issues and follow closely, neurologic checks. 2. Acute kidney injury with urinary retention. I think he needs Espinoza catheter placement. Renal ultrasound, urine electrolytes. I am going to hold any nephrotoxic drugs at least the next 24 hours. He is really not on anything that would be nephrotoxic. I am going to hold his Flomax because of his persistent orthostasis. Apparently, he is due to be started on droxidopa. It is a medication for specific orthostasis. 3. Coronary artery disease. We will get serial cardiac enzymes. Monitor on telemetry. I will interrogate his pacer just to make sure that there are no major issues. He is already on Eliquis. 4. Disposition pending the clinical improvement. cc: MD Rashad Ace MD
--- NOTE | 2017-05-05 07:58 | Diag Imaging Result Doc PS360 ---
EXAM: US RENAL 2 (RETROPER) COMPLETE HISTORY: dajuan/arf TECHNIQUE: Renal ultrasound COMMENT: The right kidney is 10.7 x 5.8 x 5.5 cm the left is 9.6 x 4.7 x 4.9 cm. The cortices appear to be thinned. There is hyperechoic. There are three cysts seen in the right kidney with the larger being in the upper midportion of the kidney measuring 2.8 cm in greatest dimension. There is some particular thinning of the cortex in the lower pole. There are no previous ultrasound studies available for comparison, however there were similar findings on the CT examination of 12/31/2016. IMPRESSION: Medical renal disease. No evidence of obstructive uropathy. Electronically signed by Errol Caro 05/05/2017 7:56 AM
[2017-05-05 10:38] LABS: CALCIUM 8.8 mg/dL (8.8-10.2); POTASSIUM 4.6 mmol/L (3.5-5.1)
[2017-05-05] MEDS: CENTRUM SILVER PO SCH (11:00)
[2017-05-05] MEDS: NAMENDA XR PO SCH (11:00)
[2017-05-05] MEDS: NEURONTIN PO SCH (11:00)
[2017-05-05] MEDS: ELIQUIS PO SCH ×2 (11:00→21:23)
[2017-05-05] MEDS: BRILINTA PO SCH ×2 (11:01→21:23)
[2017-05-05] MEDS: COREG PO SCH ×2 (11:01→21:23)
[2017-05-05] MEDS: SINGULAIR PO SCH (11:01)
[2017-05-05] MEDS: COENZYME Q10 PO SCH (11:01)
[2017-05-05] MEDS: XANAX PO SCH ×2 (11:01→21:23)
[2017-05-05] MEDS: CYMBALTA PO SCH (11:02)
[2017-05-05 11:39] LABS: HEMATOCRIT 32.5 % (42.0-52.0); HEMOGLOBIN 10.3 g/dL (14.0-18.0); MCHC 31.7 g/dL (33-37); MCV 97.9 FL (81-99); MPV 10.9 FL (7.4-10.4); RBC 3.32 XMIL (4.7-6.1)
--- NOTE | 2017-05-05 12:26 | CONSULTATION ---
DATE OF CONSULTATION: 05/05/2017 INDICATION: Syncope. HISTORY OF PRESENT ILLNESS: Mr. Mendoza is a 76-year-old white male with a history of bypass and multiple PCIs in the past. In addition, he has had a history of atrial fibrillation and pulmonary vein isolation procedure. Most recently he had an ICD implanted at [facility] in [place]. Unclear of the exact indication for this procedure but apparently the patient had been doing well with the exception of continued falling episodes. These are of undetermined etiology at this point. His daughter is present at bedside and seems to be describing them as some basically blank, relatively unresponsive spells that happen for around 10 seconds and result in his legs going out from under him and him falling. He has had some minor injuries to his upper extremities. No acute head injuries have occurred secondary to this. The patient is not able to explain why this is happening. He is apparently tolerating oral intake. He has continued on Eliquis and Brilinta in the interim. Apparently he had a recent cardiac catheterization. Unclear if he had a PCI at that time. He had a device interrogation today and it showing noncapture of his RV lead. PAST MEDICAL HISTORY: 1. Significant for coronary disease with bypass and multiple PCIs. 2. History of carotid stenosis with previous CVA. 3. Dyslipidemia. 4. BPH. 5. Dementia. 6. Reflux disease. SOCIAL HISTORY: No tobacco or alcohol. He is a retired ridley. Daughter is present at bedside. FAMILY HISTORY: Significant for coronary disease in his father. REVIEW OF SYSTEMS: A 10 system review of systems is negative except for those things mentioned in HPI. PHYSICAL EXAMINATION: Vital signs: Presently is afebrile. Heart rate is 64, blood pressure 134/61. General: He is in no acute distress. HEENT: Oropharynx is moist. Poor dentition. Eye examination is pink conjunctivae, white sclerae. Neck: Examination shows no obvious thyromegaly or thyroid tenderness. Cardiovascular: He sounds to be in a regular rate and rhythm. He has no obvious murmurs. He has no S3. He has no lower extremity edema. ICD site is in place. Mild old appearing ecchymoses around the site. Incision appears intact. No drainage. No erythema. Chest: Clear to auscultation bilaterally. No increased work of breathing. Abdomen: Soft, nontender, nondistended. No obvious organomegaly. Skin Exam: Warm and dry throughout without any rashes. Neurological: He is moving all extremities well. He has no obvious lateralizing deficits within his cranial nerves. No sensation deficits. Psychiatric: He seems relatively alert. He is trying to answer all questions appropriately. PERTINENT DATA: Head contrast showed no evidence of significant changes. Stable small cortical infarcts of the left frontal and occipital lobes. These appear to be relatively old. He had an echocardiogram April 06 showing an EF of 45%, grade 1 left ventricular diastolic dysfunction, mild mitral regurgitation, and mild tricuspid regurgitation, with mild aortic root enlargement. His laboratory data shows a white count of 7.3, hematocrit 32.5, platelet count 205,000. Sodium 138, potassium 4.6, BUN 39, creatinine 2.6. His cardiac enzymes are negative. His proBNP yesterday was 1,982. Urinalysis was unremarkable. ASSESSMENT: 1. Recurrent syncope. 2. Dislodgement of the RV lead. PLAN: We will obtain records from [facility]. We will likely discuss with the EP physicians scheduling him for RV lead revision. Continue on telemetry for now. cc: MD Gagandeep Hale MD
[2017-05-05] MEDS ORDERED: NS 1,000 ML IV SCH (15:17)
--- NOTE | 2017-05-05 16:58 | PROGRESS NOTE ---
DATE: 05/05/2017 SUBJECTIVE: The patient has no focal complaints. He is much more awake and alert today. Family says he is more awake and alert. OBJECTIVE: Vital Signs: Blood pressure 134/45, heart rate 68, respiratory rate 18, temperature 98.7 degrees, 97% on room air. Cardiovascular: Regular rate and rhythm. Pulmonary: Bilateral breath sounds. Clear to auscultation. GI: Soft, nontender, nondistended. Bowel sounds are positive. Extremities: No clubbing or cyanosis. Lymphatics: No peripheral edema. LABORATORY DATA: BUN and creatinine are 39 and 2.6. Hemoglobin and hematocrit 10 and 32. PROBLEM LIST: 1. Altered mental status. Unclear etiology. There is no evidence of acute infection. No evidence of acute stroke. Clinically, he has improved. I am not sure if this may be related just to his severe urinary retention and some renal insufficiency. 2. Urinary retention. He has been on Flomax, but I would recommend stopping that right now because of his relative BPH and then orthostatic hypotension. I am going to initiate Proscar, and we will follow. 3. Coronary artery disease appears to be stable. However, there apparently is an issue with 1 of his leads of his new pacemaker defibrillator. We are getting evaluated by Cardiology as we speak. Dr. Leggett is evaluating to see if this needs to be emergently replaced versus set up as an outpatient. I think he will need a Espinoza, and he will need set up as an outpatient. DISCHARGE CONDITION: Pending the rest of his workup. cc: Gagandeep Jones MD
[2017-05-05] MEDS: PROSCAR PO SCH (17:21)
[2017-05-05] MEDS: LIPITOR PO SCH (21:23)
[2017-05-06 07:57] LABS: HEMATOCRIT 31.1 % (42.0-52.0); MCH 30.8 PG (27-31); MCHC 32.2 g/dL (33-37); MCV 95.7 FL (81-99); MPV 10.9 FL (7.4-10.4); RBC 3.25 XMIL (4.7-6.1)
[2017-05-06 08:11] LABS: POTASSIUM 4.2 mmol/L (3.5-5.1)
[2017-05-06] MEDS: SINGULAIR PO SCH (09:35)
[2017-05-06] MEDS: NAMENDA XR PO SCH (09:35)
[2017-05-06] MEDS: COENZYME Q10 PO SCH (09:35)
[2017-05-06] MEDS: ELIQUIS PO SCH (09:35)
[2017-05-06] MEDS: PROSCAR PO SCH (09:35)
[2017-05-06] MEDS: COREG PO SCH (09:35)
[2017-05-06] MEDS: CYMBALTA PO SCH (09:35)
[2017-05-06] MEDS: NEURONTIN PO SCH (09:35)
[2017-05-06] MEDS: CENTRUM SILVER PO SCH (09:35)
[2017-05-06] MEDS: XANAX PO SCH (09:35)
[2017-05-06] MEDS: BRILINTA PO SCH (09:35)
--- NOTE | 2017-05-06 12:18 | PROGRESS NOTE ---
DATE: 05/06/2017 SUBJECTIVE: Today Mr. eMndoza refers to be doing a lot better. Has not had any more episodes of syncope. OBJECTIVELY: Vitals: Blood pressure is 159/56, pulse of 63, respirations 16, temperature is 97.4 degrees. General: Mr. Mendoza is a 76-year-old, male. He is in bed. No distress. HEENT: Mucosa is pink and moist. Anicteric and acyanotic. Neck: Supple. Chest: Clear. Cardiovascular: Regular rate and rhythm. There is a PS murmur of about 2-3/6. Abdomen: Soft, nontender. Extremities: No pedal edema. OUTSIDE CUTTER HAND: Patient is alert, awake, oriented x4. There is no focal neurological deficit. LABORATORY DATA: WBC is 6.39, hemoglobin is 10, platelet count of 191,000. Chemistry is reviewed. It is consistent with CKD stage 4. Input and output: 1100 urine output has been charted through the Espinoza catheter. Interrogation of the cardiac device was done yesterday and they found no capture on the right ventricular lead. ASSESSMENT: 1. Altered mental status on presentation. Etiology is unclear. This has remarkably removed. Not sure if it was related to his syncope episode. 2. Syncope. We think this is related to his cardiac device versus his urinary retention. Since here in the hospital, the patient has not had any more syncopal episode. 3. Urinary retention. Patient has been started on Flomax. Has a Espinoza catheter in place. We are going to advise that he follows up with Urology on an outpatient basis. 4. Coronary artery disease. Stable. 5. Pacemaker and automatic implantable cardioverter-defibrillator. The device has been interrogated and there is no capture from the right ventricular lead. I understand there has been arrangement for the patient to be transferred to [place] for that to be fixed. cc: MD Gagandeep Hansen MD
[2017-05-06 20:30] VITALS: BP 121/48
--- NOTE | 2017-05-07 06:02 | DISCHARGE SUMMARY ---
ADMISSION DATE: 05/04/2017 DISCHARGE DATE: 05/06/2017 DISPOSITION: [facility]. REASON FOR TRANSFER: Malfunctioning pacemaker. ADMISSION DIAGNOSES: 1. Encephalopathy likely metabolic multifactorial. 2. Acute kidney injury with urinary retention. 3. Coronary artery disease. DIAGNOSIS AT THE TIME OF TRANSFER: 1. Altered mental status secondary to toxic metabolic encephalopathy, improved. 2. Syncope. Likely cardiac origin. 3. Urinary retention. 4. Coronary artery disease. 5. Pacemaker/automatic implantable cardioverter-defibrillator malfunctioning (right lead not capturing). 6. Chronic kidney disease, stage 4. PRESENTING COMPLAINT: Chest pain, generalized weakness and altered mental status. HISTORY OF PRESENTING COMPLAINT: Mr. Mendoza is a 76-year-old male with multiple comorbidities including coronary artery disease. The patient is status post 2 times CABG, has a defibrillator and pacemaker. The patient came into the emergency department because of syncope and altered mental status. Upon presentation, patient was evaluated, was found to be urinary retaining. A Espinoza catheter was inserted and patient was admitted for further medical care. HOSPITAL COURSE: The patient was admitted to medical floor with telemetry. Cardiology was consulted because of the history of syncope and the ICD/pacemaker was interrogated and was found that the lead in the right ventricle was not being captured. Arrangement were done by Cardiology to transfer the patient to [place] for a device review and possible replacement. In terms of the urine retention, a Espinoza catheter was also placed and patient was started on finasteride and was asked to follow up with Urology (Dr. Mclean) after he is discharged from [place]. The patient has been clinically stable. Please refer to the details of my progress note today. He is going to be discharged and transferred to [place] for the cardiac device to be reviewed and changed if necessary and subsequently will follow up with Urology and also with Nephrology. At the time of discharge, there were not any pending labs or imaging studies. TIME SPENT FOR DISCHARGE: Thirty-six minutes. cc: MD Gagandeep Hansen MD
== END 2017-05-06 20:00 | disposition short-term general hospital (02) ==
LOC: 3N 12:38 → ED 12:38 → SUATTDRO 17:36
PROVIDERS: ADMIT Internal Medicine; ATTEND Internal Medicine